=== PATIENT | male | born 1970 | race Caucasian/White ===

== ENCOUNTER 2018-07-11 10:29 | Emergency (ER) | payer OTHER ==
[~2018-07-11] VITALS: Ht 180.3 cm; Wt 73.5 kg
[2018-07-11 10:51] LABS: ABSOLUTE BASOPHILS 0.2 thou/uL (0.0-0.2); ABSOLUTE LYMPHOCYTES 2.5 thou/uL (0.8-5.3); ABSOLUTE MONOCYTES 0.5 thou/uL (0.0-1.2); ABSOLUTE NEUTROPHILS 5.6 thou/uL (1.6-8.1); EOSINOPHILS 0.5 %; HEMATOCRIT 47.4 % (42.0-52.0); HEMOGLOBIN 16.5 gm/dL (14.0-18.0); LYMPHOCYTES 28.4 %; MCH 32.7 pg (26.0-34.0); MCHC 34.8 g/dL (28.0-37.0); MCV 93.9 fL (80.0-100.0); MONOCYTES 5.4 %; MPV 7.6 fl. (7.2-11.1); NUCLEATED RBCS 0 /100WBC; PLATELET COUNT* 315 thou/uL (150-400); POLYS 63.7 %; RBC 5.05 mil/uL (4.50-6.00); WBC 8.8 thou/uL (4.0-11.0)
[2018-07-11 10:59] LABS: ANION GAP 24 mmol/L (7-16); BUN 9 mg/dL (7-18); CALCIUM 9.5 mg/dL (8.5-10.1); CHLORIDE 98 mmol/L (98-107); CO2 17 mmol/L (21-32); GLUCOSE 73 mg/dL (70-99); POTASSIUM 3.4 mmol/L (3.5-5.1); SODIUM 139 mmol/L (136-145)
[2018-07-11 11:03] LABS: BE -6.2 mmol/L (-2 to +3); HCO3 14.2 mmol/L (22.0-26.0); PCO2 19.7 mmHg (35.0-45.0); PO2 111.7 mmHg (75.0-100.0); pH 7.476 (7.340-7.450)
[2018-07-11 11:04] LABS: URINE BILIRUBIN NEGATIVE (Negative); URINE BLOOD NEGATIVE (Negative); URINE CLARITY CLEAR; URINE COLOR YELLOW; URINE GLUCOSE-RANDOM NEGATIVE (Negative); URINE LEUKOCYTES-REFLEX NEGATIVE (Negative); URINE NITRITE-REFLEX NEGATIVE (Negative); URINE PROTEIN NEGATIVE (Negative); URINE SPECIFIC GRAVITY >= 1.030 (1.005-1.030); URINE UROBILINOGEN 0.2 E.U./dl (0.2-1.0)
[2018-07-11 11:06] LABS: ALBUMIN 4.4 g/dL (3.4-5.0); ALCOHOL 126 mg/dL (<10); ALKALINE PHOSPHATASE 48 U/L (46-116); SALICYLATE 3.3 mg/dL (2.8-20.0); SGOT 37 U/L (15-37); SGPT 32 U/L (30-65); TOTAL BILIRUBIN 0.5 mg/dL (<0.1-1.0); TOTAL PROTEIN 7.8 g/dL (6.4-8.2); TROPONIN-I LEVEL <0.06 ng/mL (<0.06)
[2018-07-11 11:07] LABS: ACETAMINOPHEN < 2 ug/mL (10-30)
[2018-07-11 11:10] LABS: ACETEST (KETONE CONFIRMATORY) Moderate (Negative); URINE KETONES 3+ (Negative)
[2018-07-11 11:11] LABS: AMP/METHAMP Negative (Negative); BARBITURATES Negative (Negative); BENZODIAZEPINES Negative (Negative); COCAINE Negative (Negative); METHADONE Negative (Negative); OPIATES Negative (Negative); PCP Negative (Negative); THC POSITIVE (Negative)
[2018-07-11 14:53] VITALS: BP 163/100
--- NOTE | 2018-07-12 11:19 | EKG ---
[place] [address] ELECTROCARDIOGRAM REPORT Name: BLAIR AMAYA Room: [facility].#: [id number] Admission: 07/11/18 Attend Phys: Discharge: 07/11/18 Date of : 66 Report #: [id number] THIS REPORT FOR: //name// [facility] ED Test Date: 2018-07-11 Test Time: 10:34:58 Pat Name: BLAIR AAMYA Department: Room: Gender: M [employer] Laboratory Assistant: Robbi DECKER : 1970 Requested By: Silvia Cain Order Number: [id number] Reading MD: Don Morrow Measurements Intervals [place] Rate: 113 P: 72 LA: 154 QRS: 49 QRSD: 102 T: 42 QT: 342 QTc: 469 Interpretive Statements Sinus tachycardia Probable left atrial enlargement RSR' in V1 or V2, right VCD or RVH No previous ECG available for comparison Electronically Signed On 07-12-2018 11:19:39 [employer] by Don Morrow [email or web address] <ELECTRONICALLY SIGNED> By: Don Morrow MD, [facility] 07/12/18 1119 1034 1034 Don Morrow MD, [facility] /EPI
== END 2018-07-11 14:53 | disposition home or self-care (01) ==
LOC: M.ERS 10:29
PROVIDERS: Personal Emergency Response Attendant
DX: F41.9 Anxiety disorder, unspecified (principal); F10.129 Alcohol abuse with intoxication, unspecified; F41.0 Panic disorder [episodic paroxysmal anxiety]